=== PATIENT | male | born 1985 | race Caucasian/White ===

== ENCOUNTER 2017-10-18 18:20 | Emergency (ER) | payer OTHER ==
[2017-10-18 20:11] VITALS: BP 92/65
[2017-10-18] MEDS ORDERED: Cephalexin CAP* 500 MG PO ONE (20:30)
--- NOTE | 2017-10-18 20:32 | UC ---
Laceration HPI - History Of Current Complaint Chief Complaint: UCLowerExtremity Stated Complaint: RIGHT FOOT COMPLAINT Time Seen by Provider: 10/18/17 19:47 - Allergies/Home Medications Allergies/Adverse Reactions: Allergies Allergy/AdvReac Type Severity Reaction Status Date / Time No Known Allergies Allergy Verified 10/18/17 19:43 PMH/Surg Hx/FS Hx/Imm Hx - Surgical History Surgical History: Unable to Obtain/Confirm - Social History Alcohol Use: None Substance Use Type: None Smoking Status (MU): Never Smoked Tobacco Physical Exam Vital Signs: Initial Vital Signs Temp 98.7 F 10/18/17 19:17 Pulse 71 10/18/17 19:17 Resp 17 10/18/17 19:17 BP 92/65 10/18/17 19:17 Pulse Ox 95 10/18/17 19:17 Discharge - Discharge Plan Condition: Critical Disposition: HOME Prescriptions: Cephalexin CAP* [Keflex CAP*] 500 mg PO QID #28 cap Patient Education Materials: Cellulitis (ED) Referrals: Nic Taylor MD [Primary Care Provider] - 3 Days Additional Instructions: TO ER FOR NEW OR WORSENING SYMPTOMS try to keep foot warm
--- NOTE | 2017-10-18 20:39 | UC ---
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 he is disabled and WC bound - History of Current Complaint Chief Complaint: UCLowerExtremity Stated Complaint: RIGHT FOOT COMPLAINT Time Seen by Provider: 10/18/17 19:47 Hx Obtained From: Patient - difficult to communicate with, 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 Severity Currently: None Pain Intensity: 0 Pain Scale Used: 0-10 Numeric - denies pain Able to Bear Weight: No - WC bound - Allergies/Home Medications Allergies/Adverse Reactions: Allergies Allergy/AdvReac Type Severity Reaction Status Date / Time No Known Allergies Allergy Verified 10/18/17 19:43 PMH/Surg Hx/FS Hx/Imm Hx Previously Healthy: No - crush injury Neurological History: CVA - Surgical History Surgical History: Unable to Obtain/Confirm - Family History Known Family History: Positive: Hypertension - Social History Alcohol Use: None Substance Use Type: None Smoking Status (MU): Never Smoked Tobacco Review of Systems Constitutional: Negative Skin: Negative Eyes: Negative ENT: Negative Respiratory: Negative Cardiovascular: Negative Gastrointestinal: Negative Genitourinary: Negative Motor: Negative Neurovascular: Negative Musculoskeletal: Negative Neurological: Negative Psychological: Negative Is Patient Immunocompromised?: No All Other Systems Reviewed And Are Negative: Yes Physical Exam Triage Information Reviewed: Yes Appearance: No Pain Distress, Well-Nourished Vital Signs: Initial Vital Signs Temp 98.7 F 10/18/17 19:17 Pulse 71 10/18/17 19:17 Resp 17 10/18/17 19:17 BP 92/65 10/18/17 19:17 Pulse Ox 95 10/18/17 19:17 Eyes: Positive: Conjunctiva Clear ENT: Positive: Hearing grossly normal. Negative: Nasal drainage, TMs normal Neck: Positive: Nontender Respiratory: Positive: Lungs clear, Normal breath sounds, No respiratory distress, No accessory muscle use Cardiovascular: Positive: RRR, No Murmur Musculoskeletal: Positive: Other: - right foot- dusky, weak dorsalis pedis and posterior tibialis pulse, both pulses easily found with doppler, dime sized area of skin break down on second toe Neurological: Positive: Alert Psychological Exam: Normal Skin: Positive: breakdown - right second toe Lower Extremity Course/Dx - Differential Dx/Diagnosis Provider Diagnoses: poor circulation right foot (reportedly long standing. skin breakdown second toe. ? cellulitis Discharge - Discharge Plan Condition: Critical Disposition: HOME Prescriptions: Cephalexin CAP* [Keflex CAP*] 500 mg PO QID #28 cap Patient Education Materials: Cellulitis (ED) Referrals: Nic Taylor MD [Primary Care Provider] - 3 Days Additional Instructions: TO ER FOR NEW OR WORSENING SYMPTOMS try to keep foot warm
== END 2017-10-18 20:40 | disposition home or self-care (01) ==
LOC: UCCORT 18:20
DX: I99.8 Other disorder of circulatory system (principal); S97.81XD Crushing injury of right foot, subsequent encounter; W23.0XXD Caught, crushed, jammed, or pinched between moving objects, subsequent encounter
CPT/HCPCS: 87070; 87077; 87205; 93005; 99212; A9270-GY; G0463

== ENCOUNTER 2018-07-18 17:39 | Emergency (ER) | payer MEDICARE, MEDICAID ==
--- OUTSIDE RECORDS SUMMARY | 2018-07-18 18:01 | XMS REPORT | Continuity of Care Document ---
:1985 External Reference #:[id number] Author Name Mirtha Brown Care Team Providers Name Role Phone Nic Taylor MD Care Team Information Underwriting Director Unavailable Nic Taylor MD Primary Care Physician Unavailable Payers Type Date Identification Numbers Payment Provider Subscriber Policy Number: [id number] Medicare Jaren Balbuena PayID: [id number] [address] [place] [address] Policy Number: [id number] Medicaid Jaren Balbuena PayID: [id number] [address] [place] [address] Advance Directives Description No Information Available Problems Description No Information Family History Description No Information Available Social History Type Date Description Comments Sex Unknown Tobacco Use Start: Unknown End: Unknown Former Cigarette Smoker ETOH Use Never used alcohol Recreational Drug Use Never Used Drugs Allergies, Adverse Reactions, Alerts Description No Known Drug Allergies Medications Medication Date Status Form Strength Qnty SIG Indications Ordering Provider Saline Nasal Active Solution Unknown [place] 000 Donepezil HCL Active Tablets 10mg Unknown 000 Aspir-[address] 81mg 1 by Unknown 000 mouth every day Metanx 0 Active Capsules [id number] Unknown 000 -35mg Refresh Optive Active Solution 0.5-0.9% Unknown 000 Pantoprazole 0 Active Solution 40mg daily Unknown Sodium 000 Rec Effexor XR 0 Active Caps ER 37.5mg 1 by Unknown 000 24HR mouth every day Baclofen 0 Active Tablets Unknown 000 Benzoyl 0 Active Lotion Unknown Peroxide 000 Vesicare 0 Active Tablets once a Unknown 000 day Colace 0 Active Capsules 1 by Unknown 000 mouth every day Vitamin B 0 Active Unknown 000 Strattera 0 Active Capsules Unknown 000 Mirtazapine 0 Active Tablets take one Unknown 000 tablet at night time Immunizations Description No Information Available Vital Signs Date Vital Result Comment 07/07/2018 2:56pm Weight 188.00 lb Height 68 inches 5'8" BMI (Body Mass Index) 28.6 kg/m2 BP Systolic 126 mmHg BP Diastolic 87 mmHg Heart Rate 65 /min O2 % BldC Oximetry 99 % Body Temperature 97.9 F Pain Level 0 Results Description No Information Available Procedures Date Code Description Status 07/07/2018 23463 Nasal/Sinus Endoscopy, Surgical, W/Control Of Epistaxis Completed Encounters Type Date Location Provider Dx Diagnosis Office Visit 07/07/2018 2:30p Main Office Valente Clark M.D. R04.0 Epistaxis J34.2 Deviated nasal septum K21.9 Gastro-esophageal reflux disease without esophagitis Plan of Treatment Future Appointment(s):08/07/2018 10:45 am - Valente Clark M.D. at Main Office
[2018-07-18 19:37] VITALS: BP 102/58
--- NOTE | 2018-07-18 20:05 | UC ---
Skin Complaint HPI - HPI Summary HPI Summary: Per repair service dispatcher "here with staff/Stephanie from long-term -infection right great toe noticed by staff today" -he has right sided paralysis UE & LE. has no feeling in his leg. 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 denies fevers/chills. - History of Current Complaint Chief Complaint: UCSkin Time Seen by Provider: 07/18/18 19:43 Stated Complaint: RIGHT FOOT INFECTION Pain Intensity: 0 - Allergy/Home Medications Allergies/Adverse Reactions: Allergies Allergy/AdvReac Type Severity Reaction Status Date / Time No Known Allergies Allergy Verified 07/18/18 19:38 Home Medications: Home Medications Atomoxetine(NF) [Strattera(NF)] 80 mg PO DAILY 07/18/18 [History Confirmed 07/18] Cephalexin CAP* [Keflex CAP*] 500 mg PO DAILY 07/18/18 [History Confirmed ] Review of Systems Constitutional: Negative Skin: Negative Eyes: Negative ENT: Negative Respiratory: Negative Cardiovascular: Negative Gastrointestinal: Negative Genitourinary: Negative Motor: Negative Neurovascular: Negative Musculoskeletal: Negative Neurological: Weakness, Numbness Psychological: Negative Is Patient Immunocompromised?: No All Other Systems Reviewed And Are Negative: Yes PMH/Surg Hx/FS Hx/Imm Hx Previously Healthy: No - CVA. sanjeev paraylsis - Surgical History Surgical History: Yes Surgery Procedure, Year, and Place: occipital craniotomy - Family History Known Family History: Positive: Hypertension - Social History Alcohol Use: None Substance Use Type: None Smoking Status (MU): Never Smoked Tobacco Physical Exam Triage Information Reviewed: Yes Appearance: Well-Appearing, No Pain Distress, Well-Nourished - very good disposition, smiling, joking. speech compromised but vocal. Vital Signs: Initial Vital Signs Temp 97.6 F 07/18/18 19:27 Pulse 100 07/18/18 19:27 Resp 19 07/18/18 19:27 BP 102/58 07/18/18 19:27 Pulse Ox 96 07/18/18 19:27 Vital Signs Reviewed: Yes Eye Exam: Normal ENT Exam: Normal ENT: Positive: Other - speech compromised. Respiratory: Positive: Lungs clear, Normal breath sounds Cardiovascular Exam: Normal Cardiovascular: Positive: RRR Abdomen Description: Positive: Nontender, Soft Musculoskeletal Exam: Normal Neurological: Positive: Other: - right heni-paralysis Psychological Exam: Normal Skin: Positive: Other - right great toe w/ erythema to extensor rt great toe. there is mild bloody d/c coming from nail w/ thickened nails. no sensation. poor circulation in right foot (noted to be baseline per health aid). Course/Dx - Course Course Of Treatment: keflex 500mgs 1 po tid x 10 d w/ probiotic. 1st dose dispensed here. - Differential Diagnoses - Skin Complaint Differential Diagnoses: Cellulitis - Diagnoses Provider Diagnoses: right great toe cellulitis Discharge - Sign-Out/Discharge Documenting (check all that apply): Patient Departure All imaging exams completed and their final reports reviewed: No Studies - Discharge Plan Condition: Stable Disposition: HOME Prescriptions: Cephalexin CAP* [Keflex CAP*] 500 mg PO TID 10 Days #29 cap L.acidoph,Paracasei, B.lactis [Probiotic] 1 each PO BID 10 Days #20 capsule Patient Education Materials: Cellulitis (ED) Referrals: Nic Taylor MD [Primary Care Provider] - 4 Days - Billing Disposition and Condition Condition: STABLE Disposition: Home
[2018-07-18] MEDS ORDERED: Cephalexin CAP* 500 MG PO ONE ×2 (20:10→20:48)
[2018-07-18] MEDS ORDERED: Cephalexin SUSP* 250 MG/5 ML ORAL.SUSP 100 ML BTL PO ONE (20:28)
== END 2018-07-18 21:00 | disposition home or self-care (01) ==
LOC: UCCORT 17:39
DX: L03.031 Cellulitis of right toe (principal); G81.91 Hemiplegia, unspecified affecting right dominant side; I99.8 Other disorder of circulatory system
CPT/HCPCS: 99213; A9270-GY; G0463

== ENCOUNTER 2024-01-08 09:52 | Inpatient (IN) ==
[2024-01-08 11:05] LABS: Venous Bicarbonate HCO3 26.4 mmol/L (24-28)
[2024-01-08 11:14] LABS: INR 1.2 (0.83-1.13)
[2024-01-08 11:18] LABS: ABS Eosinophils 0.1 10^3/uL (0.0-0.5); ABS Lymphocytes 0.5 10^3/uL (1.0-4.8); ABS Neutrophils 4.3 10^3/uL (1.5-7.6); ABS Nucleated RBC 0.01 10^3/ul; Eosinophil % 2.3 %; Hematocrit 38.8 % (38-53); Hemoglobin 12.7 g/dL (13.2-16.3); Mean Corpuscular Hemoglobin 25.5 pg (27-33); Mean Corpuscular Hgb Conc 32.8 g/dL (31-36); Mean Corpuscular Volume 77.8 fL (80-97); Mean Platelet Volume 8.5 fL (7.5-11.2); Nucleated Red Blood Cells % 0.2 %/100WBC (0.0-0.8); Platelet Count 229 10^3/uL (150-450); Red Blood Count 4.99 10^6/uL (4.06-5.63); Red Cell Distribution Width 16.5 % (12-17)
[2024-01-08 11:31] LABS: High Sens Troponin Baseline 4 pg/mL (<20)
[2024-01-08] MEDS: Cefepime 2 GM in Dextrose 2 GM/50 ML BAG IV ONE (11:59)
[2024-01-08] MEDS: Lactated Ringers 1000 ml BAG 1,000 ML IV SCH (11:59)
[2024-01-08 12:22] LABS: ALT 63 U/L (7-52); Albumin/Globulin Ratio 1.5 (1-3); Alkaline Phosphatase 86 U/L (35-149); Anion Gap 8 mmol/L (2-16); Blood Urea Nitrogen 7 mg/dL (6-24); C Reactive Protein 96.87 mg/L (<8.01); CO2 Carbon Dioxide 28 mmol/L (22-32); Calcium 8.5 mg/dL (8.6-10.3); Chloride 102 mmol/L (101-111); Creatinine, Serum 1.09 mg/dL (0.67-1.17); Globulin 2.7 g/dL (2-4); Glucose 90 mg/dL (70-100); Sodium 138 mmol/L (135-145); Total Bilirubin 0.3 mg/dL (0.2-1.0); Total Protein 6.7 g/dL (6.4-8.9); eGFR CKD-EPI 89.1 (>60)
[2024-01-08] MEDS ORDERED: Albuterol/Ipratropium NEB.SOL (2.5/0.5 MG) 3 ML NEB.SOLN ONE (12:24)
[2024-01-08] MEDS: Albuterol/Ipratropium NEB.SOL (2.5/0.5 MG) 3 ML NEB.SOLN INH SCH ×2 (12:25→16:17)
[2024-01-08 12:33] LABS: High Sensitivity Troponin 1 Hr 4 pg/mL (<20)
[2024-01-08] MEDS: Azithromycin 500 mg/250 ml NS 500 MG/250 ML BAG IVPB ONE (12:56)
[2024-01-08 13:42] LABS: Urine Appearance Clear; Urine Bilirubin Negative (Negative); Urine Blood Negative (Negative); Urine Color Yellow; Urine Glucose Negative (Negative); Urine Ketones Negative (Negative); Urine Nitrite Negative (Negative); Urine Protein Trace (Negative); Urine Specific Gravity 1.023 (1.002-1.030); Urine Urobilinogen Negative (Negative)
[2024-01-08] MEDS ORDERED: Albuterol/Ipratropium NEB.SOL (2.5/0.5 MG) 3 ML NEB.SOLN INH PRN ×2 (16:16→19:09)
[2024-01-08] MEDS ORDERED: Magnesium Hydroxide LIQ 30 ML UDC PO PRN (16:24)
[2024-01-08 17:35] LABS: Potassium Redraw 4.1 mmol/L (3.5-5.0)
[2024-01-08] MEDS: methylPREDNISolone SOD SUCC 40 mg/ml 1 ml VIAL IV SCH (18:29)
[2024-01-08] MEDS: guaiFENesin 100 mg/5 ml LIQ unit dose cup PO SCH (18:29)
[2024-01-08] MEDS: Enoxaparin 40 MG/0.4 ML SYR SUBCUT SCH (18:29)
[2024-01-08] MEDS: Carboxymethylcellulose/Glyceri 10 ML OPHTH.GEL lubricant eye gel BOTH EYES SCH (19:20)
[2024-01-08] MEDS ORDERED: Albuterol/Ipratropium NEB.SOL (2.5/0.5 MG) 3 ML NEB.SOLN INH SCH (23:00)
[2024-01-09 06:10] LABS: ABS Lymphocytes 0.6 10^3/uL (1.0-4.8); ABS Monocytes 0.4 10^3/uL (0.0-1.1); ABS Neutrophils 3.1 10^3/uL (1.5-7.6); ABS Nucleated RBC 0.01 10^3/ul; Hematocrit 37.5 % (38-53); Hemoglobin 12.2 g/dL (13.2-16.3); Lymphocyte % 13.5 %; Mean Corpuscular Hemoglobin 25.4 pg (27-33); Mean Corpuscular Hgb Conc 32.6 g/dL (31-36); Mean Corpuscular Volume 78.1 fL (80-97); Mean Platelet Volume 8.3 fL (7.5-11.2); Nucleated Red Blood Cells % 0.2 %/100WBC (0.0-0.8); Platelet Count 237 10^3/uL (150-450); Red Cell Distribution Width 16.5 % (12-17); White Blood Count 4.1 10^3/uL (3.6-10.2)
[2024-01-09 06:43] LABS: Calcium 8.6 mg/dL (8.6-10.3); Creatinine, Serum 0.95 mg/dL (0.67-1.17); eGFR CKD-EPI 105.1 (>60)
[2024-01-09 08:09] LABS: C Reactive Protein 98.87 mg/L (<8.01)
[2024-01-09] MEDS: CMCS: Solifenacin 5 mg TAB (NF) PO SCH (09:56)
[2024-01-09] MEDS: Aspirin EC 81 mg TAB.EC (enteric coated) PO SCH (09:56)
[2024-01-10 07:54] LABS: Anion Gap 13 mmol/L (2-16); Blood Urea Nitrogen 18 mg/dL (6-24); CO2 Carbon Dioxide 22 mmol/L (22-32); Calcium 8.9 mg/dL (8.6-10.3); Chloride 106 mmol/L (101-111); Glucose 110 mg/dL (70-100); Sodium 141 mmol/L (135-145); eGFR CKD-EPI 112.1 (>60)
[2024-01-10 10:13] LABS: Potassium Redraw 5.1 mmol/L (3.5-5.0)
[2024-01-10 10:33] LABS: Ferritin 44.7 ng/mL (24-336)
[2024-01-10] MEDS: SODIUM ZIRCONIUM CYCLOSILICATE 10 GM PACKET PO ONE (11:37)
[2024-01-11 09:06] LABS: ABS Lymphocytes 0.8 10^3/uL (1.0-4.8); ABS Monocytes 0.5 10^3/uL (0.0-1.1); ABS Neutrophils 6.7 10^3/uL (1.5-7.6); Hematocrit 37.6 % (38-53); Hemoglobin 12.1 g/dL (13.2-16.3); Lymphocyte % 10.3 %; Mean Corpuscular Hemoglobin 25.2 pg (27-33); Mean Corpuscular Hgb Conc 32.1 g/dL (31-36); Mean Corpuscular Volume 78.4 fL (80-97); Mean Platelet Volume 7.8 fL (7.5-11.2); Platelet Count 309 10^3/uL (150-450); Red Cell Distribution Width 16.6 % (12-17); White Blood Count 8.1 10^3/uL (3.6-10.2)
[2024-01-11 10:00] VITALS: BP 106/75
[2024-01-11 10:14] LABS: Calcium 8.9 mg/dL (8.6-10.3); Creatinine, Serum 0.88 mg/dL (0.67-1.17); Potassium 4.3 mmol/L (3.5-5.0); eGFR CKD-EPI 112.9 (>60)
== END 2024-01-11 10:45 | DRG 193 ==
LOC: ED 09:52 → EDHOLD 13:35 → MED 15:21
PROVIDERS: ADMIT Student in an Organized Health Care Education/Training Program; ATTEND Student in an Organized Health Care Education/Training Program